=== PATIENT | male | born 1965 | race Asian ===

== ENCOUNTER 2019-03-09 06:56 | Emergency (ER) | payer OTHER ==
[~2019-03-09] VITALS: Ht 175.3 cm; Wt 82.0 kg
--- NOTE | 2019-03-09 08:26 | NUR ---
SLEEPING. CONTINUE TO MONITOR
[2019-03-09 08:27] LABS: ALBUMIN 3.6 g/dL (3.4-5.0); ANION GAP 5 mmol/L (5-15); CALCIUM 8.4 mg/dL (8.5-10.1); CHLORIDE 113 mmol/L (98-107); CREATININE 1.05 mg/dL (0.7-1.3)
[2019-03-09 08:30] LABS: BASOPHILS # (AUTO) 0.02 x10^3/uL (0-0.1); BASOPHILS % (AUTO) 0 % (0-1); EOSINOPHILS # (AUTO) 0.06 x10^3/uL (0-0.4); EOSINOPHILS % (AUTO) 1 % (1-7); LYMPHOCYTES # (AUTO) 2.13 x10^3/uL (1-3.4); LYMPHOCYTES % (AUTO) 37 % (22-44); MD NO; MEAN CORPUSCULAR HEMOGLOBIN 33.6 pg (27.5-34.5); MEAN CORPUSCULAR HGB CONC 34.6 g/dL (33.2-36.2); MEAN CORPUSCULAR VOLUME 97.2 fL (81-97); MEAN PLATELET VOLUME 8.1 fL (7.4-10.4); MONOCYTES # (AUTO) 0.39 x10^3/uL (0.2-0.8); MONOCYTES % (AUTO) 7 % (2-9); NEUTROPHILS # (AUTO) 3.11 x10^3/uL (1.8-6.8); NEUTROPHILS % (AUTO) 54 % (42-75); PLATELET COUNT 153 x10^3/uL (130-400); RED BLOOD COUNT 4.24 x10^6/uL (4.38-5.82); RED CELL DISTRIBUTION WIDTH 13.7 % (9.4-14.8); TROPONIN I < 0.015 ng/mL (0.000-0.045)
--- NOTE | 2019-03-09 09:46 | NUR ---
REMAINS DROWSY, AROUSABLE, A&OX4. PT ABLE TO STAND AND TAKE A FEW STEPS TO W/C WITHOUT ASSISTANCE. GIVEN DISCHARGE WITH INSTRUCTIONS TO OBSERVE PT CLOSELY FOR THE NEXT 24 HOURS. TO LOBBY WITH TO AWAIT RIDE
[2019-03-09 09:47] VITALS: BP 108/58
== END 2019-03-09 09:49 | disposition home or self-care (01) ==
LOC: ED 08:52
DX: S00.83XA Contusion of other part of head, initial encounter (principal); S09.8XXA Other specified injuries of head, initial encounter; W18.30XA Fall on same level, unspecified, initial encounter; Y93.89 Activity, other specified; Y92.59 Other trade areas as the place of occurrence of the external cause; Y99.8 Other external cause status
CPT/HCPCS: 36415; 70450; 70486; 71045; 80048; 80307; 82040; 84484; 85025; 93005; 99284